=== PATIENT | female | born 1975 ===

== ENCOUNTER 2022-04-01 21:27 | Emergency (ER) | payer SELFPAY ==
[2022-04-01 22:58] LABS: CORONAVIRUS COVID-19 NAA NEGATIVE (NEGATIVE)
[2022-04-01 23:05] LABS: ANION GAP 16.1 mEq/L (7-13); CHLORIDE,CL 106 mmol/L (98-107); SODIUM,NA 140 mmol/L (136-145)
== END 2022-04-02 01:17 ==
LOC: DL.ED 21:27
DX: R05.9 Cough, unspecified (principal); Z88.0 Allergy status to penicillin; Z88.1 Allergy status to other antibiotic agents; Z20.822 Contact with and (suspected) exposure to COVID-19
CPT/HCPCS: 0240U; 36415; 71046; 80053; 81001; 81025; 85025; 99284